=== PATIENT | male | born 1940 | race Caucasian/White ===

== ENCOUNTER 2016-09-18 03:29 | Inpatient (IN) | payer OTHER ==
[~2016-09-18] VITALS: Ht 172.7 cm; Wt 119.5 kg
[~2016-09-18 03:29] MED LIST: ALLOPURINOL100 MG PO; ASPIRIN325 MG PO; BENICAR40 MG PO; CRESTOR5 MG PO; Feosol PO; GLUCOSAMINE CH1 EACH PO; HYDRODIURIL,ORE25 MG PO; IRON45 MG PO; Januvia PO; LOPID600 MG PO; LOPRESSOR25 MG PO; Motrin PO; OXYCODONE HCL10 MG PO; Percocet 5/325,Endoc PO; STOOL SOFTENER50 MG PO; TYLENOL ARTHRI650 M2 PO; TYLENOL325 M1 PO; VASOTEC20 MG PO; ZETIA10 MG PO; [UNRECOGNIZED DRUG - CODE] PO
[2016-09-18 04:14] LABS: EOSINOPHIL (%) 0.7 % (0-5); EOSINOPHIL COUNT 0.1 K/uL (0-0.3); HEMATOCRIT 43.5 % (38.0-50.0); IMMATURE GRANULOCYTE (%) 0.4 % (0.0-0.7); IMMATURE GRANULOCYTE COUNT 0.4 K/uL; LYMPHOCYTE COUNT 0.4 K/uL (1.0-2.8); MCH 30.1 PG (29.0-34.0); MCHC 32.4 G/DL (30.0-36.0); MCV 92.9 FL (86-99); MEAN PLAT.VOLUME 11.4 uM^3 (9.0-12.4); MONOCYTE (%) 3.1 % (3-12); MONOCYTE COUNT 0.3 K/uL (0-0.8); NEUTROPHIL COUNT 8.8 K/uL (1.8-6.4); PLATELET COUNT 151 K/uL (156-360); RBC DIS.WIDTH-CV 14.2 % (11.8-14.6); RBC DIS.WIDTH-SD 46.5 % (39-53); RED BLOOD COUNT 4.68 M/uL (4.00-5.50); WHITE BLOOD COUNT 9.6 K/uL (4.1-10.2)
[2016-09-18 04:23] LABS: CHLORIDE 105 mEq/L (99-109); POTASSIUM 3.9 mEq/L (3.7-5.4); SODIUM 145 mEq/L (136-147)
[2016-09-18 04:25] LABS: GLUCOSE 144 mg/dL (70-99)
[2016-09-18 04:26] LABS: ANION GAP 13 MEQ/L (2-14)
[2016-09-18 04:28] LABS: GFR ESTIMATE (CALCULATED) 37 mL/min/
[2016-09-18 04:29] LABS: UREA NITROGEN (BUN) 27 mg/dL (9-23)
[2016-09-18 04:35] LABS: TROP-I INTERPRETATION NEGATIVE; TROPONIN-I 0.04 ng/mL (0.0-0.30)
[2016-09-18 04:51] LABS: INFLUENZA A VIRAL ANTIGEN NEGATIVE; INFLUENZA B VIRAL ANTIGEN NEGATIVE
[2016-09-18] MEDS ORDERED: GLIPIZIDE ER2.5 MG PO (05:42)
[2016-09-18] MEDS ORDERED: FUROSEMIDE80 MG PO (05:43)
[2016-09-18] MEDS ORDERED: PARICALCITOL1 MCG PO (05:49)
[2016-09-18] MEDS ORDERED: GABAPENTIN100 MG PO (05:50)
[2016-09-18] MEDS ORDERED: IRBESARTAN75 MG PO (05:52)
[2016-09-18] MEDS ORDERED: CLONIDINE HCL0.1 MG PO (05:52)
[2016-09-18] MEDS ORDERED: ATORVASTATIN CA40 MG PO (05:53)
[2016-09-18] MEDS ORDERED: ESCITALOPRAM OX10 MG PO (05:53)
[2016-09-18] MEDS ORDERED: LO-DOSE ASPIRIN81 M2 PO (05:54)
[2016-09-18] MEDS ORDERED: AMLODIPINE BESY10 MG PO (05:54)
[2016-09-18] MEDS ORDERED: MAG-TAB SR84 MG PO (05:55)
[2016-09-18 06:37] VITALS: BP 159/61
[2016-09-18 08:20] VITALS: BP 131/62
[2016-09-18] MEDS ORDERED: STOOL SOFTENER100 M1 PO (10:32)
[2016-09-18] MEDS ORDERED: ALLOPURINOL100 MG PO (10:33)
[2016-09-18] MEDS ORDERED: MUCINEX1200 MG PO (10:34)
[2016-09-18] MEDS ORDERED: ADVAIR HFA120 INHALA IH (10:35)
[2016-09-18] MEDS ORDERED: PROAIR HFA8.5 GM IH (10:35)
[2016-09-18 10:53] LABS: TROP-I INTERPRETATION NEGATIVE; TROPONIN-I 0.07 ng/mL (0.0-0.30)
[2016-09-18 12:09] LABS: D-DIMER ELISA > 4.00 mg/L FEU (< 0.57)
[2016-09-18 12:19] VITALS: BP 126/57
[2016-09-18 15:55] VITALS: BP 133/62
[2016-09-18] MEDS ORDERED: SYMBICORT60 INHALAT IH ×2 (16:16→16:17)
[2016-09-18 16:50] LABS: POINT-OF-CARE METER ID UU14162508
[2016-09-18 17:25] LABS: TROP-I INTERPRETATION NEGATIVE; TROPONIN-I 0.06 ng/mL (0.0-0.30)
[2016-09-18 19:05] VITALS: BP 161/69
[2016-09-18 21:31] LABS: POINT-OF-CARE METER ID UU14162508
[2016-09-19 00:32] VITALS: BP 148/67
[2016-09-19 03:10] VITALS: BP 133/63
[2016-09-19 07:05] LABS: POINT-OF-CARE METER ID UU14162508
[2016-09-19 08:43] VITALS: BP 147/67
[2016-09-19 09:18] LABS: ALKALINE PHOSPHATASE 88 IU/L (3-129); ANION GAP 9 MEQ/L (2-14); CHLORIDE 102 MEQ/L (99-109); EOSINOPHIL (%) 0.6 % (0-5); EOSINOPHIL COUNT 0.1 K/uL (0-0.3); GFR ESTIMATE (CALCULATED) 42 mL/min/; GLUCOSE 119 mg/dL (70-99); HEMATOCRIT 39.9 % (38.0-50.0); IMMATURE GRANULOCYTE (%) 0.3 % (0.0-0.7); IMMATURE GRANULOCYTE COUNT 0.1 K/uL; LYMPHOCYTE COUNT 0.8 K/uL (1.0-2.8); MCHC 30.8 G/DL (30.0-36.0); MCV 94.1 FL (86-99); MEAN PLAT.VOLUME 11.9 uM^3 (9.0-12.4); MONOCYTE (%) 5.8 % (3-12); MONOCYTE COUNT 0.8 K/uL (0-0.8); NEUTROPHIL (%) 87.4 % (45-76); NEUTROPHIL COUNT 12.7 K/uL (1.8-6.4); PLATELET COUNT 137 K/uL (156-360); POTASSIUM 4.2 MEQ/L (3.7-5.4); RBC DIS.WIDTH-CV 14.8 % (11.8-14.6); RBC DIS.WIDTH-SD 50.6 % (39-53); RED BLOOD COUNT 4.24 M/uL (4.00-5.50); SAMPLE HEMOLYSIS CHECK 0; SAMPLE ICTERIC CHECK 0; SAMPLE LIPEMIA CHECK 0; SODIUM 141 MEQ/L (136-147); TOTAL BILIRUBIN 0.9 MG/DL (0.0-1.0); UREA NITROGEN (BUN) 29 mg/dL (9-23)
[2016-09-19 09:26] LABS: WHITE BLOOD COUNT 14.5 K/uL (4.1-10.2)
[2016-09-19 09:51] LABS: Estimated Average Glucose 180 mg/dL (70-123); HEMOGLOBIN A1c (GLYCOHEMOGLOB) 7.9 % HGB (Below 5.7)
[2016-09-19 16:00] VITALS: BP 143/65
[2016-09-19 19:00] VITALS: BP 160/71
[2016-09-19 21:41] LABS: POINT-OF-CARE METER ID UU14162508
[2016-09-19 23:13] VITALS: BP 148/80
[2016-09-20 03:00] VITALS: BP 137/69
[2016-09-20 04:40] LABS: ADD MIUA? YES; BILIRUBIN NEGATIVE; BLOOD SMALL; COLOR YELLOW ((YELLOW)); GLUCOSE (STRIP) NEGATIVE; KETONES NEGATIVE; LEUKOCYTES NEGATIVE; NITRITE NEGATIVE; PROTEIN (STRIP) 100; SPECIFIC GRAVITY 1.011 (1.000-1.030); UROBILINOGEN 0.2 MG/DL (0.2-1.0)
[2016-09-20 04:47] LABS: BACTERIA NONE SEEN /HPF; EPITHELIAL CELLS NONE SEEN /HPF; MUCUS NONE SEEN /LPF; RED BLOOD CELLS 0-5 /HPF (0-5); UCUL ADDED? NO; WHITE BLOOD CELLS 0-5 /HPF (0-5)
[2016-09-20 06:36] LABS: POINT-OF-CARE METER ID UU14162508
[2016-09-20 06:39] LABS: EOSINOPHIL COUNT 0.1 K/uL (0-0.3); HEMATOCRIT 35.9 % (38.0-50.0); IMMATURE GRANULOCYTE (%) 0.3 % (0.0-0.7); LYMPHOCYTE COUNT 0.7 K/uL (1.0-2.8); MCH 29.7 PG (29.0-34.0); MCHC 31.5 G/DL (30.0-36.0); MCV 94.5 FL (86-99); MEAN PLAT.VOLUME 12.1 uM^3 (9.0-12.4); MONOCYTE (%) 6.5 % (3-12); MONOCYTE COUNT 0.7 K/uL (0-0.8); NEUTROPHIL (%) 85.8 % (45-76); NEUTROPHIL COUNT 9.8 K/uL (1.8-6.4); PLATELET COUNT 123 K/uL (156-360); RBC DIS.WIDTH-CV 14.7 % (11.8-14.6); RBC DIS.WIDTH-SD 50.4 % (39-53); WHITE BLOOD COUNT 11.4 K/uL (4.1-10.2)
[2016-09-20 07:00] VITALS: BP 182/77
[2016-09-20 07:11] LABS: ALKALINE PHOSPHATASE 87 IU/L (3-129); ANION GAP 10 MEQ/L (2-14); CHLORIDE 102 MEQ/L (99-109); GFR ESTIMATE (CALCULATED) 45 mL/min/; GLUCOSE 148 mg/dL (70-99); POTASSIUM 4.1 MEQ/L (3.7-5.4); SAMPLE HEMOLYSIS CHECK 0; SAMPLE ICTERIC CHECK 0; SAMPLE LIPEMIA CHECK 0; SODIUM 138 MEQ/L (136-147); UREA NITROGEN (BUN) 28 mg/dL (9-23)
[2016-09-20 07:13] LABS: TOTAL BILIRUBIN 0.7 MG/DL (0.0-1.0)
[2016-09-20 07:54] LABS: INTERNAL CONTROL VALID? YES
[2016-09-20 11:15] VITALS: BP 162/70
[2016-09-20] MEDS ORDERED: CEFTIN500 MG PO (12:21)
== END 2016-09-20 13:10 | disposition home or self-care (01) | DRG 193 ==
LOC: EME 03:29 → 2EAST 05:23 → EDOF 05:23 → 2EAST 06:17
PROVIDERS: Hospitalist; Personal Emergency Response Attendant; Physician Assistant
DX: J18.9 Pneumonia, unspecified organism (principal); J96.01 Acute respiratory failure with hypoxia; N18.3 Chronic kidney disease, stage 3 (moderate); E11.22 Type 2 diabetes mellitus with diabetic chronic kidney disease; I12.9 Hypertensive chronic kidney disease with stage 1 through stage 4 chronic kidney disease, or unspecified chronic kidney disease; I25.10 Atherosclerotic heart disease of native coronary artery without angina pectoris; E78.5 Hyperlipidemia, unspecified; Z87.891 Personal history of nicotine dependence; G47.33 Obstructive sleep apnea (adult) (pediatric); E66.9 Obesity, unspecified; Z85.048 Personal history of other malignant neoplasm of rectum, rectosigmoid junction, and anus; Z88.2 Allergy status to sulfonamides; Z88.8 Allergy status to other drugs, medicaments and biological substances; I25.2 Old myocardial infarction; Z90.49 Acquired absence of other specified parts of digestive tract
CPT/HCPCS: 71010; 78582; 80048; 80053; 81003; 82948; 83036; 84484; 85025; 85027; 85379; 87040; 87070; 87205; 87449; 87502; 93005; 93970; 94640; 94640 76; 94660; 94799; 99202; 99281; 99285; A9540; A9567; J0456; J0696; J1644; J1815; J2270; J7030; J7050

== ENCOUNTER 2017-04-26 09:35 | Inpatient (IN) | payer OTHER ==
[~2017-04-26] VITALS: Ht 170.2 cm; Wt 123.3 kg
[~2017-04-26 09:35] MED LIST changes: +ADVAIR HFA120 INHALA IH; +AMLODIPINE BESY10 MG PO; +ATORVASTATIN CA40 MG PO; +CEFTIN500 MG PO; +CLONIDINE HCL0.1 MG PO; +ESCITALOPRAM OX10 MG PO; +FUROSEMIDE80 MG PO; +GABAPENTIN100 MG PO; +GLIPIZIDE ER2.5 MG PO; +IRBESARTAN75 MG PO; +LO-DOSE ASPIRIN81 M2 PO; +MAG-TAB SR84 MG PO; +MUCINEX1200 MG PO; +PARICALCITOL1 MCG PO; +PROAIR HFA8.5 GM IH; +STOOL SOFTENER100 M1 PO; +SYMBICORT60 INHALAT IH
[2017-04-26 10:47] LABS: EOSINOPHIL (%) 0.6 % (0-5); EOSINOPHIL COUNT 0.1 K/uL (0-0.3); HEMATOCRIT 38.6 % (38.0-50.0); IMMATURE GRANULOCYTE (%) 0.5 % (0.0-0.7); IMMATURE GRANULOCYTE COUNT 0.1 K/uL; INSTRUMENT ABS NEUTROPHIL CT 12.5 K/uL; LYMPHOCYTE COUNT 0.6 K/uL (1.0-2.8); MCH 29.5 PG (29.0-34.0); MCHC 32.1 G/DL (30.0-36.0); MCV 91.7 FL (86-99); MONOCYTE (%) 5.4 % (3-12); MONOCYTE COUNT 0.8 K/uL (0-0.8); NEUTROPHIL COUNT 12.5 K/uL (1.8-6.4); PLATELET COUNT 175 K/uL (156-360); RBC DIS.WIDTH-SD 46.7 % (39-53); RED BLOOD COUNT 4.21 M/uL (4.00-5.50)
[2017-04-26 10:57] LABS: CHLORIDE 101 mEq/L (99-109); POTASSIUM 4.2 mEq/L (3.7-5.4); SODIUM 140 mEq/L (136-147)
[2017-04-26 10:59] LABS: GLUCOSE 168 mg/dL (70-99)
[2017-04-26 11:01] LABS: ANION GAP 12 MEQ/L (2-14); TOTAL BILIRUBIN 0.8 mg/dL (0.0-1.0)
[2017-04-26 11:03] LABS: ALKALINE PHOSPHATASE 121 IU/L (3-129); GFR ESTIMATE (CALCULATED) 28 mL/min/
[2017-04-26 11:04] LABS: UREA NITROGEN (BUN) 29 mg/dL (9-23)
[2017-04-26 13:07] LABS: ADD MIUA? YES; BILIRUBIN NEGATIVE; BLOOD SMALL; COLOR YELLOW ((YELLOW)); GLUCOSE (STRIP) 50; KETONES NEGATIVE; LEUKOCYTES NEGATIVE; NITRITE NEGATIVE; PROTEIN (STRIP) 100; SPECIFIC GRAVITY 1.016 (1.000-1.030); UROBILINOGEN 0.2 MG/DL (0.2-1.0)
[2017-04-26 13:11] LABS: BACTERIA NONE SEEN /HPF; EPITHELIAL CELLS RARE /HPF; MUCUS TRACE /LPF; RED BLOOD CELLS 0-5 /HPF (0-5); UCUL ADDED? NO; WHITE BLOOD CELLS 0-5 /HPF (0-5)
[2017-04-26] MEDS ORDERED: ADVAIR 250/501 DISK IH (15:29)
[2017-04-26] MEDS ORDERED: MAGNESIUM250 MG PO (15:29)
[2017-04-26] MEDS ORDERED: LASIX80 MG PO (15:31)
[2017-04-26] MEDS ORDERED: FLEXERIL5 MG PO (15:32)
[2017-04-26] MEDS ORDERED: OMEGA-3 KRILL1 EAC2 PO (15:33)
[2017-04-26 18:03] VITALS: BP 193/77
[2017-04-26 19:39] VITALS: BP 163/75
[2017-04-27 03:52] VITALS: BP 128/62
[2017-04-27 06:55] LABS: ANION GAP 9 MEQ/L (2-14); CHLORIDE 104 MEQ/L (99-109); GLUCOSE 126 mg/dL (70-99); POTASSIUM 4.3 MEQ/L (3.7-5.4); SAMPLE HEMOLYSIS CHECK 0; SAMPLE ICTERIC CHECK 0; SAMPLE LIPEMIA CHECK 0; SODIUM 140 MEQ/L (136-147); UREA NITROGEN (BUN) 24 mg/dL (9-23)
[2017-04-27 07:01] LABS: POINT-OF-CARE METER ID UU13113717
[2017-04-27 07:07] LABS: GFR ESTIMATE (CALCULATED) 37 mL/min/
[2017-04-27 07:17] VITALS: BP 156/66
[2017-04-27 09:20] LABS: INTERNAL CONTROL VALID? YES
[2017-04-27 11:16] VITALS: BP 157/68
[2017-04-27 15:15] VITALS: BP 142/62
[2017-04-27 17:33] LABS: POINT-OF-CARE METER ID UU14188625
[2017-04-27 19:25] VITALS: BP 181/81
[2017-04-27 23:02] LABS: POINT-OF-CARE METER ID UU14188625
[2017-04-27 23:57] VITALS: BP 169/74
[2017-04-28] VITALS (7 sets, daily range): BP systolic 139–213; BP diastolic 65–93
[2017-04-28 06:29] LABS: ANION GAP 9 MEQ/L (2-14); CHLORIDE 105 MEQ/L (99-109); GFR ESTIMATE (CALCULATED) 45 mL/min/; GLUCOSE 127 mg/dL (70-99); POTASSIUM 4.6 MEQ/L (3.7-5.4); SAMPLE HEMOLYSIS CHECK 0; SAMPLE ICTERIC CHECK 0; SAMPLE LIPEMIA CHECK 0; SODIUM 139 MEQ/L (136-147); UREA NITROGEN (BUN) 22 mg/dL (9-23)
[2017-04-28 06:33] LABS: HEMATOCRIT 33.2 % (38.0-50.0); MCH 28.8 PG (29.0-34.0); MCV 92.7 FL (86-99); MEAN PLAT.VOLUME 11.6 uM^3 (9.0-12.4); PLATELET COUNT 152 K/uL (156-360); RBC DIS.WIDTH-CV 13.9 % (11.8-14.6); RBC DIS.WIDTH-SD 47.5 % (39-53); RED BLOOD COUNT 3.58 M/uL (4.00-5.50); WHITE BLOOD COUNT 9.6 K/uL (4.1-10.2)
[2017-04-28 06:54] LABS: POINT-OF-CARE METER ID UU14188625
[2017-04-28 11:15] LABS: POINT-OF-CARE METER ID UU14188625
[2017-04-28 16:35] LABS: POINT-OF-CARE METER ID UU14188625
[2017-04-29] VITALS (8 sets, daily range): BP systolic 110–178; BP diastolic 57–87
[2017-04-29 06:56] LABS: HEMATOCRIT 36.4 % (38.0-50.0); MCH 28.9 PG (29.0-34.0); MCHC 31.3 G/DL (30.0-36.0); MCV 92.2 FL (86-99); MEAN PLAT.VOLUME 11.3 uM^3 (9.0-12.4); RBC DIS.WIDTH-CV 13.8 % (11.8-14.6); RBC DIS.WIDTH-SD 47.3 % (39-53); RED BLOOD COUNT 3.95 M/uL (4.00-5.50); WHITE BLOOD COUNT 9.8 K/uL (4.1-10.2)
[2017-04-29 07:01] LABS: PLATELET COUNT 202 K/uL (156-360)
[2017-04-29 07:11] LABS: ANION GAP 12 MEQ/L (2-14); CHLORIDE 102 MEQ/L (99-109); GFR ESTIMATE (CALCULATED) 45 mL/min/; GLUCOSE 140 mg/dL (70-99); POTASSIUM 4.3 MEQ/L (3.7-5.4); SAMPLE HEMOLYSIS CHECK 0; SAMPLE ICTERIC CHECK 0; SAMPLE LIPEMIA CHECK 0; SODIUM 136 MEQ/L (136-147); UREA NITROGEN (BUN) 23 mg/dL (9-23)
[2017-04-29 11:10] LABS: POINT-OF-CARE METER ID UU13113717
[2017-04-29 15:13] LABS: BASE EXCESS -2.5 mEq/L (-3 to +3); BICARBONATE 22.5 mEq/L (22-26); CARBOXY HGB 1.6 % (0-5); METHEMOGLOBIN 1.2 % (0-1.5); PCO2 39 mm Hg (35-45); PO2 104 mm Hg (80-100); pH 7.37 (7.35-7.45)
[2017-04-29 15:14] LABS: COMMENTS - BLOOD GASES C+; DEVICE NRB; O2 FLOW 15 L/MIN; SITE RR; TOTAL RESP RATE 28 resp/min
[2017-04-29 16:27] LABS: POINT-OF-CARE METER ID UU14188625
[2017-04-29 21:11] LABS: POINT-OF-CARE METER ID UU14188625
[2017-04-30 03:40] VITALS: BP 132/72
[2017-04-30 06:56] LABS: EOSINOPHIL (%) 0.1 % (0-5); HEMATOCRIT 34.6 % (38.0-50.0); IMMATURE GRANULOCYTE (%) 0.7 % (0.0-0.7); IMMATURE GRANULOCYTE COUNT 0.1 K/uL; INSTRUMENT ABS NEUTROPHIL CT 12.6 K/uL; LYMPHOCYTE COUNT 0.2 K/uL (1.0-2.8); MCH 28.8 PG (29.0-34.0); MCHC 31.5 G/DL (30.0-36.0); MCV 91.5 FL (86-99); MEAN PLAT.VOLUME 11.8 uM^3 (9.0-12.4); MONOCYTE (%) 2.3 % (3-12); MONOCYTE COUNT 0.3 K/uL (0-0.8); NEUTROPHIL COUNT 12.6 K/uL (1.8-6.4); PLATELET COUNT 168 K/uL (156-360); RBC DIS.WIDTH-CV 14.3 % (11.8-14.6); RBC DIS.WIDTH-SD 47.8 % (39-53); RED BLOOD COUNT 3.78 M/uL (4.00-5.50); WHITE BLOOD COUNT 13.2 K/uL (4.1-10.2)
[2017-04-30 07:05] LABS: ANION GAP 11 MEQ/L (2-14); CHLORIDE 103 MEQ/L (99-109); GFR ESTIMATE (CALCULATED) 35 mL/min/; SAMPLE HEMOLYSIS CHECK 0; SAMPLE ICTERIC CHECK 0; SAMPLE LIPEMIA CHECK 0; SODIUM 135 MEQ/L (136-147); UREA NITROGEN (BUN) 30 mg/dL (9-23)
[2017-04-30 07:08] LABS: GLUCOSE 215 mg/dL (70-99); POTASSIUM 5.5 MEQ/L (3.7-5.4)
[2017-04-30 08:03] VITALS: BP 140/72
[2017-04-30 10:24] LABS: ANION GAP 12 MEQ/L (2-14); CHLORIDE 102 MEQ/L (99-109); GFR ESTIMATE (CALCULATED) 35 mL/min/; GLUCOSE 233 mg/dL (70-99); POTASSIUM 4.9 MEQ/L (3.7-5.4); SAMPLE HEMOLYSIS CHECK 0; SAMPLE ICTERIC CHECK 0; SAMPLE LIPEMIA CHECK 0; SODIUM 136 MEQ/L (136-147); UREA NITROGEN (BUN) 33 mg/dL (9-23)
[2017-04-30 11:26] LABS: POINT-OF-CARE METER ID UU14188625
[2017-04-30 12:19] VITALS: BP 126/64
[2017-04-30 17:30] LABS: POINT-OF-CARE METER ID UU14188625
[2017-04-30 17:34] VITALS: BP 159/74
[2017-04-30 19:30] VITALS: BP 131/68
[2017-05-01 00:47] VITALS: BP 127/60
[2017-05-01 04:34] VITALS: BP 176/77
[2017-05-01 05:00] VITALS: BP 145/84
[2017-05-01 07:50] VITALS: BP 156/91
[2017-05-01 08:36] LABS: POINT-OF-CARE METER ID UU14188625
[2017-05-01 08:54] LABS: HEMATOCRIT 35.5 % (38.0-50.0); MCH 28.7 PG (29.0-34.0); MCHC 31.8 G/DL (30.0-36.0); MCV 90.1 FL (86-99); MEAN PLAT.VOLUME 11.6 uM^3 (9.0-12.4); RBC DIS.WIDTH-SD 46.6 % (39-53); RED BLOOD COUNT 3.94 M/uL (4.00-5.50); WHITE BLOOD COUNT 17.4 K/uL (4.1-10.2)
[2017-05-01 08:59] LABS: PLATELET COUNT 221 K/uL (156-360)
[2017-05-01 09:47] LABS: ANION GAP 12 MEQ/L (2-14); CHLORIDE 99 MEQ/L (99-109); GFR ESTIMATE (CALCULATED) 25 mL/min/; GLUCOSE 286 mg/dL (70-99); POTASSIUM 5.1 MEQ/L (3.7-5.4); SAMPLE HEMOLYSIS CHECK 0; SAMPLE ICTERIC CHECK 0; SAMPLE LIPEMIA CHECK 0; SODIUM 133 MEQ/L (136-147)
[2017-05-01 09:49] LABS: UREA NITROGEN (BUN) 62 mg/dL (9-23)
[2017-05-01 12:44] LABS: POINT-OF-CARE METER ID UU14188625
[2017-05-01 12:54] VITALS: BP 149/88
[2017-05-01 17:53] LABS: POINT-OF-CARE METER ID UU13113717
[2017-05-01 19:29] VITALS: BP 187/93
[2017-05-01 20:49] LABS: UR CREATININE CONCENTRATION 101.9 MG/DL
[2017-05-02] VITALS (7 sets, daily range): BP systolic 126–181; BP diastolic 60–89
[2017-05-02 09:30] LABS: EOSINOPHIL (%) 0 % (0-5); HEMATOCRIT 33.9 % (38.0-50.0); IMMATURE GRANULOCYTE COUNT 0.3 K/uL; INSTRUMENT ABS NEUTROPHIL CT 13.7 K/uL; LYMPHOCYTE COUNT 0.5 K/uL (1.0-2.8); MCH 28.7 PG (29.0-34.0); MCHC 31.9 G/DL (30.0-36.0); MCV 90.2 FL (86-99); MEAN PLAT.VOLUME 11.5 uM^3 (9.0-12.4); MONOCYTE (%) 5.1 % (3-12); MONOCYTE COUNT 0.8 K/uL (0-0.8); NEUTROPHIL (%) 89.6 % (45-76); NEUTROPHIL COUNT 13.7 K/uL (1.8-6.4); PLATELET COUNT 238 K/uL (156-360); RBC DIS.WIDTH-CV 14.1 % (11.8-14.6); RBC DIS.WIDTH-SD 46.5 % (39-53); RED BLOOD COUNT 3.76 M/uL (4.00-5.50); WHITE BLOOD COUNT 15.3 K/uL (4.1-10.2)
[2017-05-02 09:56] LABS: ANION GAP 13 MEQ/L (2-14); CHLORIDE 99 MEQ/L (99-109); GFR ESTIMATE (CALCULATED) 19 mL/min/; GLUCOSE 292 mg/dL (70-99); SAMPLE HEMOLYSIS CHECK 0; SAMPLE ICTERIC CHECK 0; SAMPLE LIPEMIA CHECK 0; SODIUM 132 MEQ/L (136-147); UREA NITROGEN (BUN) 83 mg/dL (9-23)
[2017-05-02 11:57] LABS: POINT-OF-CARE METER ID UU14188625
[2017-05-02 16:33] LABS: POINT-OF-CARE METER ID UU14188625
[2017-05-02 21:06] LABS: POINT-OF-CARE METER ID UU14188625
[2017-05-03 03:27] VITALS: BP 137/65
[2017-05-03 06:57] LABS: ANION GAP 9 MEQ/L (2-14); CHLORIDE 103 MEQ/L (99-109); GFR ESTIMATE (CALCULATED) 24 mL/min/; GLUCOSE 230 mg/dL (70-99); POTASSIUM 5.3 MEQ/L (3.7-5.4); SAMPLE HEMOLYSIS CHECK 0; SAMPLE ICTERIC CHECK 0; SAMPLE LIPEMIA CHECK 0; SODIUM 137 MEQ/L (136-147); UREA NITROGEN (BUN) 86 mg/dL (9-23)
[2017-05-03 07:06] VITALS: BP 170/74
[2017-05-03 07:56] LABS: INTACT PARATHYROID HORMONE 87 pg/mL (10-69)
[2017-05-03 08:21] LABS: HEMATOCRIT 32.3 % (38.0-50.0); MCH 28.7 PG (29.0-34.0); MCHC 31.6 G/DL (30.0-36.0); MCV 90.7 FL (86-99); MEAN PLAT.VOLUME 11.8 uM^3 (9.0-12.4); PLATELET COUNT 237 K/uL (156-360); RBC DIS.WIDTH-CV 14.2 % (11.8-14.6); RBC DIS.WIDTH-SD 47.5 % (39-53); RED BLOOD COUNT 3.56 M/uL (4.00-5.50); WHITE BLOOD COUNT 12.2 K/uL (4.1-10.2)
[2017-05-03 11:03] VITALS: BP 152/70
[2017-05-03 12:02] LABS: POINT-OF-CARE METER ID UU14188625
[2017-05-03 15:03] VITALS: BP 141/63
[2017-05-03 16:25] LABS: POINT-OF-CARE METER ID UU13113717
[2017-05-03 19:38] VITALS: BP 153/72
[2017-05-03 21:37] LABS: POINT-OF-CARE METER ID UU13113717
[2017-05-04 00:50] VITALS: BP 176/79
[2017-05-04 04:31] VITALS: BP 197/90
[2017-05-04 07:04] LABS: ANION GAP 9 MEQ/L (2-14); CHLORIDE 104 MEQ/L (99-109); GFR ESTIMATE (CALCULATED) 27 mL/min/; GLUCOSE 151 mg/dL (70-99); POTASSIUM 5.2 MEQ/L (3.7-5.4); SAMPLE HEMOLYSIS CHECK 0; SAMPLE ICTERIC CHECK 0; SAMPLE LIPEMIA CHECK 0; SODIUM 136 MEQ/L (136-147); UREA NITROGEN (BUN) 81 mg/dL (9-23)
[2017-05-04 08:07] VITALS: BP 190/82
[2017-05-04] MEDS ORDERED: CLONIDINE HCL0.2 MG PO (09:59)
[2017-05-04] MEDS ORDERED: AUGMENTIN500 MG PO (09:59)
[2017-05-04] MEDS ORDERED: PREDNISONE20 MG PO (09:59)
[2017-05-04] MEDS ORDERED: APRESOLINE50 MG PO (09:59)
[2017-05-04] MEDS ORDERED: AMLODIPINE BESY10 MG PO (09:59)
[2017-05-04 11:33] VITALS: BP 189/79
[2017-05-04 12:08] LABS: POINT-OF-CARE METER ID UU14188625
== END 2017-05-04 14:08 | disposition home health service (06) | DRG 871 ==
LOC: EME 09:35 → EDOF 14:04 → ENRESERV 14:05 → EDOF 14:17 → ENRESERV 14:50 → 5SOUTH 17:15
PROVIDERS: Emergency Medicine; Hospitalist; Internal Medicine; Physician Assistant
PROC: 5A09357 Assistance with Respiratory Ventilation, Less than 24 Consecutive Hours, Continuous Positive Airway Pressure (ICD-10-PCS; principal; 2017-04-29)
DX: A41.9 Sepsis, unspecified organism (principal); R65.20 Severe sepsis without septic shock; J44.0 Chronic obstructive pulmonary disease with (acute) lower respiratory infection; J15.9 Unspecified bacterial pneumonia; J44.1 Chronic obstructive pulmonary disease with (acute) exacerbation; N17.9 Acute kidney failure, unspecified; I13.0 Hypertensive heart and chronic kidney disease with heart failure and stage 1 through stage 4 chronic kidney disease, or unspecified chronic kidney disease; E11.22 Type 2 diabetes mellitus with diabetic chronic kidney disease; N18.4 Chronic kidney disease, stage 4 (severe); I50.9 Heart failure, unspecified; R09.02 Hypoxemia; E11.65 Type 2 diabetes mellitus with hyperglycemia; E87.5 Hyperkalemia; G47.33 Obstructive sleep apnea (adult) (pediatric); I27.20 Pulmonary hypertension, unspecified; N40.1 Benign prostatic hyperplasia with lower urinary tract symptoms; R31.0 Gross hematuria; N32.0 Bladder-neck obstruction; R39.11 Hesitancy of micturition; R33.9 Retention of urine, unspecified; J98.11 Atelectasis; K59.00 Constipation, unspecified; N13.30 Unspecified hydronephrosis; N25.81 Secondary hyperparathyroidism of renal origin; D64.9 Anemia, unspecified; R60.0 Localized edema; E78.5 Hyperlipidemia, unspecified; I25.10 Atherosclerotic heart disease of native coronary artery without angina pectoris; I25.2 Old myocardial infarction; M10.9 Gout, unspecified; E66.9 Obesity, unspecified; Z68.41 Body mass index [BMI] 40.0-44.9, adult; G89.29 Other chronic pain; M54.9 Dorsalgia, unspecified; Z80.0 Family history of malignant neoplasm of digestive organs; Z82.49 Family history of ischemic heart disease and other diseases of the circulatory system; Z85.048 Personal history of other malignant neoplasm of rectum, rectosigmoid junction, and anus; Z87.891 Personal history of nicotine dependence; Z90.49 Acquired absence of other specified parts of digestive tract; Z90.79 Acquired absence of other genital organ(s); Z93.3 Colostomy status
CPT/HCPCS: 36600; 71010; 71020; 74020; 76770; 78582; 80048; 80048 91; 80053; 80069; 81003; 82436; 82570; 82803; 82948; 83605; 83735; 83970; 84300; 85025; 85027; 85379; 87040; 87070; 87205; 87449; 89190; 93005; 93306; 94010; 94640; 94640 76; 94660; 94667; 94668; 94799; 99202; 99281; 99285; A9540; A9567; J0360; J0456; J0696; J1650; J1815; J2060; J2270; J2930; J3370; J3475; J7030; J7040; J7050; J7512

== ENCOUNTER 2017-05-05 16:21 | Emergency (ER) | payer OTHER ==
[~2017-05-05] VITALS: Ht 170.2 cm; Wt 126.4 kg
[~2017-05-05 16:21] MED LIST changes: +ADVAIR 250/501 DISK IH; +APRESOLINE50 MG PO; +AUGMENTIN500 MG PO; +CLONIDINE HCL0.2 MG PO; +FLEXERIL5 MG PO; +LASIX80 MG PO; +MAGNESIUM250 MG PO; +OMEGA-3 KRILL1 EAC2 PO; +PREDNISONE20 MG PO
[2017-05-05 21:45] VITALS: BP 170/80
== END 2017-05-05 21:50 | disposition home or self-care (01) ==
LOC: EME 16:21
PROC: 0T2BX0Z Change Drainage Device in Bladder, External Approach (ICD-10-PCS; principal; 2017-05-05)
DX: T83.098A Other mechanical complication of other urinary catheter, initial encounter (principal); Y84.6 Urinary catheterization as the cause of abnormal reaction of the patient, or of later complication, without mention of misadventure at the time of the procedure; R33.9 Retention of urine, unspecified; N32.0 Bladder-neck obstruction; I13.0 Hypertensive heart and chronic kidney disease with heart failure and stage 1 through stage 4 chronic kidney disease, or unspecified chronic kidney disease; N18.3 Chronic kidney disease, stage 3 (moderate); E11.22 Type 2 diabetes mellitus with diabetic chronic kidney disease; I50.9 Heart failure, unspecified; E78.5 Hyperlipidemia, unspecified; I25.10 Atherosclerotic heart disease of native coronary artery without angina pectoris; I25.2 Old myocardial infarction; I48.92 Unspecified atrial flutter; M10.9 Gout, unspecified; E21.3 Hyperparathyroidism, unspecified; G47.30 Sleep apnea, unspecified; Z85.038 Personal history of other malignant neoplasm of large intestine; Z93.3 Colostomy status; Z79.84 Long term (current) use of oral hypoglycemic drugs; Z79.82 Long term (current) use of aspirin; Z87.891 Personal history of nicotine dependence; Z90.79 Acquired absence of other genital organ(s); Z87.01 Personal history of pneumonia (recurrent)
CPT/HCPCS: 99281; 99285; J3010

== ENCOUNTER 2017-10-23 17:58 | Inpatient (IN) | payer OTHER ==
[~2017-10-23] VITALS: Ht 172.7 cm; Wt 115.4 kg
[2017-10-23 18:45] LABS: HEMATOCRIT 32.4 % (38.0-50.0); HEMOGLOBIN 9.9 G/DL (12.5-16.6); MCH 25.3 PG (29.0-34.0); MCHC 30.6 G/DL (30.0-36.0); MCV 82.9 FL (86-99); RBC DIS.WIDTH-CV 16.2 % (11.8-14.6); RBC DIS.WIDTH-SD 48.4 % (39-53); RED BLOOD COUNT 3.91 M/uL (4.00-5.50); WHITE BLOOD COUNT 8.4 K/uL (4.1-10.2)
[2017-10-23 18:51] LABS: PLATELET COUNT 302 K/uL (156-360)
[2017-10-23 18:52] LABS: CARBON DIOXIDE (BICARBONATE) 29.2 MEQ/L (20-31)
[2017-10-23 19:02] LABS: CHLORIDE 105 mEq/L (99-109); POTASSIUM 4.1 mEq/L (3.7-5.4); SODIUM 142 mEq/L (136-147)
[2017-10-23 19:04] LABS: GLUCOSE 164 mg/dL (70-99)
[2017-10-23 19:08] LABS: CREATININE 2.3 mg/dL (0.6-1.3); GFR ESTIMATE (CALCULATED) 30 mL/min/ (58.99-99999)
[2017-10-23 19:09] LABS: UREA NITROGEN (BUN) 23 mg/dL (9-23)
[2017-10-23 19:11] LABS: TROP-I INTERPRETATION NEGATIVE; TROPONIN-I 0.11 ng/mL (0.0-0.30)
[2017-10-23] MEDS ORDERED: VENTOLIN HFA18 GM IH (20:22)
[2017-10-23] MEDS ORDERED: TRADJENTA5 MG PO (20:28)
[2017-10-23] MEDS ORDERED: FUROSEMIDE40 MG PO (20:29)
[2017-10-23] MEDS ORDERED: FUROSEMIDE20 MG PO (20:30)
[2017-10-23] MEDS ORDERED: ALBUTEROL2.5 MG/3 M IH (20:31)
[2017-10-23] MEDS ORDERED: CYCLOBENZAPRINE5 MG PO (20:32)
[2017-10-23] MEDS ORDERED: OMEPRAZOLE20 MG PO (20:32)
[2017-10-23] MEDS ORDERED: ELIQUIS5 MG PO (20:33)
[2017-10-23] MEDS ORDERED: BASAGLAR K100 UNIT/1 SC (20:33)
[2017-10-23] MEDS ORDERED: MEGARED OMEGA-1 EAC2 PO (20:35)
[2017-10-23 22:00] VITALS: BP 172/86
[2017-10-24] VITALS (7 sets, daily range): BP systolic 126–170; BP diastolic 61–98
[2017-10-24 07:10] LABS: BASOPHIL (%) 0.5 % (0-1); EOSINOPHIL (%) 0 % (0-5); HEMATOCRIT 34.8 % (38.0-50.0); HEMOGLOBIN 10.5 G/DL (12.5-16.6); IMMATURE GRANULOCYTE (%) 0.7 % (0.0-0.7); LYMPHOCYTE (%) 3.6 % (15-42); LYMPHOCYTE COUNT 0.3 K/uL (1.0-2.8); MCH 25.1 PG (29.0-34.0); MCHC 30.2 G/DL (30.0-36.0); MCV 83.1 FL (86-99); MONOCYTE (%) 1.1 % (3-12); MONOCYTE COUNT 0.1 K/uL (0-0.8); NEUTROPHIL (%) 94.1 % (45-76); NEUTROPHIL COUNT 7.6 K/uL (1.8-6.4); PLATELET COUNT 327 K/uL (156-360); RBC DIS.WIDTH-CV 16.2 % (11.8-14.6); RBC DIS.WIDTH-SD 48.4 % (39-53); RED BLOOD COUNT 4.19 M/uL (4.00-5.50); WHITE BLOOD COUNT 8.1 K/uL (4.1-10.2)
[2017-10-24 07:35] LABS: CHLORIDE 101 MEQ/L (99-109); CREATININE 2.4 MG/DL (0.6-1.3); GFR ESTIMATE (CALCULATED) 28 mL/min/ (58.99-99999); SODIUM 138 MEQ/L (136-147); UREA NITROGEN (BUN) 26 mg/dL (9-23)
[2017-10-24 07:43] LABS: GLUCOSE 262 mg/dL (70-99); POTASSIUM 5.3 MEQ/L (3.7-5.4)
[2017-10-24 15:49] LABS: APPEARANCE SL.HAZY ((CLEAR)); BILIRUBIN NEGATIVE; BLOOD NEGATIVE; COLOR YELLOW ((YELLOW)); GLUCOSE (STRIP) >=500; KETONES NEGATIVE; LEUKOCYTES NEGATIVE; NITRITE NEGATIVE; PROTEIN (STRIP) 100; SPECIFIC GRAVITY 1.016 (1.000-1.030); UROBILINOGEN 0.2 MG/DL (0.2-1.0)
[2017-10-24 15:53] LABS: BACTERIA NONE SEEN /HPF; EPITHELIAL CELLS NONE SEEN /HPF; MUCUS TRACE /LPF; RED BLOOD CELLS 0-5 /HPF (0-5); WHITE BLOOD CELLS 0-5 /HPF (0-5)
[2017-10-25 04:07] VITALS: BP 157/88
[2017-10-25 06:59] VITALS: BP 156/91
[2017-10-25 11:18] VITALS: BP 157/85
[2017-10-25 15:37] VITALS: BP 141/89
[2017-10-25 19:22] VITALS: BP 159/89
[2017-10-26] VITALS (8 sets, daily range): BP systolic 147–186; BP diastolic 84–95
[2017-10-26 07:12] LABS: CHLORIDE 99 MEQ/L (99-109); CREATININE 2.1 MG/DL (0.6-1.3); GFR ESTIMATE (CALCULATED) 33 mL/min/ (58.99-99999); GLUCOSE 299 mg/dL (70-99); POTASSIUM 5.3 MEQ/L (3.7-5.4); SODIUM 135 MEQ/L (136-147)
[2017-10-26 07:20] LABS: UREA NITROGEN (BUN) 45 mg/dL (9-23)
[2017-10-27 04:22] VITALS: BP 160/91
[2017-10-27 06:12] LABS: HEMATOCRIT 34.9 % (38.0-50.0); HEMOGLOBIN 10.5 G/DL (12.5-16.6); MCH 25.1 PG (29.0-34.0); MCHC 30.1 G/DL (30.0-36.0); MCV 83.3 FL (86-99); NRBC (%) 0.2 /100 WBC (0-0); RBC DIS.WIDTH-CV 16.5 % (11.8-14.6); RBC DIS.WIDTH-SD 49.2 % (39-53); RED BLOOD COUNT 4.19 M/uL (4.00-5.50); WHITE BLOOD COUNT 13.2 K/uL (4.1-10.2)
[2017-10-27 06:22] LABS: PLATELET COUNT 460 K/uL (156-360)
[2017-10-27 06:28] LABS: ALBUMIN 3.6 G/DL (3.2-4.8); CHLORIDE 98 MEQ/L (99-109); CREATININE 2.3 MG/DL (0.6-1.3); GFR ESTIMATE (CALCULATED) 30 mL/min/ (58.99-99999); GLUCOSE 260 mg/dL (70-99); PHOSPHORUS 4.1 mg/dL (2.5-4.9); POTASSIUM 5.9 MEQ/L (3.7-5.4); SODIUM 136 MEQ/L (136-147); UREA NITROGEN (BUN) 48 mg/dL (9-23)
[2017-10-27 07:07] VITALS: BP 157/84
[2017-10-27 11:18] VITALS: BP 146/89
[2017-10-27 15:25] VITALS: BP 157/55
[2017-10-27] MEDS ORDERED: CEFTIN500 MG PO (15:32)
[2017-10-27 15:35] LABS: CHLORIDE 99 MEQ/L (99-109); CREATININE 2.2 MG/DL (0.6-1.3); GFR ESTIMATE (CALCULATED) 31 mL/min/ (58.99-99999); GLUCOSE 260 mg/dL (70-99); SODIUM 135 MEQ/L (136-147); UREA NITROGEN (BUN) 46 mg/dL (9-23)
[2017-10-27 15:37] LABS: POTASSIUM 4.3 MEQ/L (3.7-5.4)
[2017-10-27] MEDS ORDERED: FUROSEMIDE40 MG PO (15:37)
[2017-10-27] MEDS ORDERED: BASAGLAR K100 UNIT/1 SC (15:37)
== END 2017-10-27 18:02 | disposition home or self-care (01) | DRG 291 ==
LOC: EME 17:58 → 5EAST 21:26 → EDOF 21:26 → ENRESERV 21:28 → 5EAST 22:01
PROVIDERS: Emergency Medicine; Internal Medicine; Internal Medicine Nephrology
DX: I13.0 Hypertensive heart and chronic kidney disease with heart failure and stage 1 through stage 4 chronic kidney disease, or unspecified chronic kidney disease (principal); J15.9 Unspecified bacterial pneumonia; J44.1 Chronic obstructive pulmonary disease with (acute) exacerbation; I50.9 Heart failure, unspecified; J44.0 Chronic obstructive pulmonary disease with (acute) lower respiratory infection; I27.20 Pulmonary hypertension, unspecified; G47.33 Obstructive sleep apnea (adult) (pediatric); I25.10 Atherosclerotic heart disease of native coronary artery without angina pectoris; I25.2 Old myocardial infarction; E66.9 Obesity, unspecified; D63.1 Anemia in chronic kidney disease; Z93.3 Colostomy status; Z87.891 Personal history of nicotine dependence; N18.3 Chronic kidney disease, stage 3 (moderate); E11.22 Type 2 diabetes mellitus with diabetic chronic kidney disease; E87.2 Acidosis; E78.5 Hyperlipidemia, unspecified; E87.5 Hyperkalemia; D50.9 Iron deficiency anemia, unspecified; Z85.038 Personal history of other malignant neoplasm of large intestine; Z90.49 Acquired absence of other specified parts of digestive tract; I87.2 Venous insufficiency (chronic) (peripheral); Z80.0 Family history of malignant neoplasm of digestive organs
CPT/HCPCS: 36415; 71045; 76770; 80048; 80048 91; 80069; 81003; 82570; 82607 GA; 82728; 82803; 82948; 83540; 83605; 83880; 84156; 84466; 84484; 85025; 85027; 87040; 93005; 94640; 94640 76; 94660; 94799; 99202; 99281; 99285; J0696; J1100; J1756; J1815; J1940; J7050; J7512

== ENCOUNTER 2017-11-13 11:03 | Emergency (ER) | payer OTHER ==
[~2017-11-13] VITALS: Ht 172.7 cm; Wt 111.1 kg
[~2017-11-13 11:03] MED LIST changes: +ALBUTEROL2.5 MG/3 M IH; +BASAGLAR K100 UNIT/1 SC; +CYCLOBENZAPRINE5 MG PO; +ELIQUIS5 MG PO; +FUROSEMIDE20 MG PO; +FUROSEMIDE40 MG PO; +MEGARED OMEGA-1 EAC2 PO; +OMEPRAZOLE20 MG PO; +TRADJENTA5 MG PO; +VENTOLIN HFA18 GM IH
[2017-11-13 13:11] LABS: HEMATOCRIT 30.2 % (38.0-50.0); MCH 25.6 PG (29.0-34.0); MCHC 29.8 G/DL (30.0-36.0); RBC DIS.WIDTH-CV 19.6 % (11.8-14.6); RBC DIS.WIDTH-SD 59.6 % (39-53); RED BLOOD COUNT 3.51 M/uL (4.00-5.50); WHITE BLOOD COUNT 7.2 K/uL (4.1-10.2)
[2017-11-13 13:22] LABS: CHLORIDE 104 mEq/L (99-109); POTASSIUM 3.6 mEq/L (3.7-5.4); SODIUM 142 mEq/L (136-147)
[2017-11-13 13:24] LABS: GLUCOSE 164 mg/dL (70-99)
[2017-11-13 13:28] LABS: CREATININE 1.9 mg/dL (0.6-1.3); GFR ESTIMATE (CALCULATED) 37 mL/min/ (58.99-99999)
[2017-11-13 13:29] LABS: UREA NITROGEN (BUN) 30 mg/dL (9-23)
[2017-11-13 14:07] LABS: PLAT.SUFFICIENCY ADEQUATE; PLATELET COUNT 177 K/uL (156-360)
[2017-11-13 16:19] LABS: HEMATOCRIT 30.9 % (38.0-50.0); HEMOGLOBIN 9.4 G/DL (12.5-16.6); MCV 85.8 FL (86-99)
[2017-11-13] MEDS ORDERED: PROTONIX40 MG PO (16:22)
[2017-11-13 16:55] VITALS: BP 138/82
== END 2017-11-13 16:55 | disposition home or self-care (01) ==
LOC: EME 11:03
PROVIDERS: Nurse Practitioner Family
DX: K92.1 Melena (principal); I48.91 Unspecified atrial fibrillation; Z79.01 Long term (current) use of anticoagulants; Z79.82 Long term (current) use of aspirin; J44.9 Chronic obstructive pulmonary disease, unspecified; E11.9 Type 2 diabetes mellitus without complications; E78.5 Hyperlipidemia, unspecified; I10 Essential (primary) hypertension; I25.2 Old myocardial infarction; Z85.038 Personal history of other malignant neoplasm of large intestine; Z93.3 Colostomy status; Z88.2 Allergy status to sulfonamides; Z87.891 Personal history of nicotine dependence
CPT/HCPCS: 74176; 80048; 85014; 85018; 85027; 86850; 86900; 86901; 99281; 99285

== ENCOUNTER 2017-12-05 20:50 | Inpatient (IN) | payer OTHER ==
[~2017-12-05] VITALS: Ht 172.7 cm; Wt 108.0 kg
[~2017-12-05 20:50] MED LIST changes: +PROTONIX40 MG PO; -STOOL SOFTENER100 M1 PO; +STOOL SOFTENER250 MG PO
[2017-12-05 21:38] LABS: CHLORIDE 104 mEq/L (99-109); POTASSIUM 3.8 mEq/L (3.7-5.4); SODIUM 142 mEq/L (136-147)
[2017-12-05 21:39] LABS: GLUCOSE 162 mg/dL (70-99)
[2017-12-05 21:43] LABS: CREATININE 2.2 mg/dL (0.6-1.3); GFR ESTIMATE (CALCULATED) 31 mL/min/ (58.99-99999)
[2017-12-05 21:44] LABS: UREA NITROGEN (BUN) 35 mg/dL (9-23)
[2017-12-05 21:48] LABS: TROP-I INTERPRETATION NEGATIVE; TROPONIN-I 0.07 ng/mL (0.0-0.30)
[2017-12-05 22:01] LABS: HEMATOCRIT 28.7 % (38.0-50.0); HEMOGLOBIN 8.5 G/DL (12.5-16.6); MCH 27.3 PG (29.0-34.0); MCHC 29.6 G/DL (30.0-36.0); MCV 92.3 FL (86-99); PLATELET COUNT 219 K/uL (156-360); RBC DIS.WIDTH-CV 19.5 % (11.8-14.6); RBC DIS.WIDTH-SD 65.9 % (39-53); RED BLOOD COUNT 3.11 M/uL (4.00-5.50); WHITE BLOOD COUNT 10.1 K/uL (4.1-10.2)
[2017-12-05] MEDS ORDERED: FEOSOL325 MG PO (22:23)
[2017-12-05] MEDS ORDERED: MEGA RED PO (22:27)
[2017-12-05] MEDS ORDERED: CARDIZEM CD,CA240 MG PO (22:31)
[2017-12-05] MEDS ORDERED: BASAGLAR K100 UNIT/1 SC (22:39)
[2017-12-06 00:58] VITALS: BP 171/83
[2017-12-06 02:14] VITALS: BP 127/27
[2017-12-06 07:03] VITALS: BP 154/74
[2017-12-06 15:22] VITALS: BP 142/69
[2017-12-06 23:58] VITALS: BP 134/63
[2017-12-07] VITALS: BP 134/63
[2017-12-07 07:02] VITALS: BP 145/80
[2017-12-07 15:10] VITALS: BP 124/62
[2017-12-07 23:33] VITALS: BP 152/67
[2017-12-08 07:22] VITALS: BP 131/94
[2017-12-08 16:05] VITALS: BP 135/73
[2017-12-09 01:05] VITALS: BP 145/70
[2017-12-09 07:35] VITALS: BP 140/79
[2017-12-09] MEDS ORDERED: PREDNISONE10 MG PO (08:17)
== END 2017-12-09 10:10 | disposition home or self-care (01) | DRG 189 ==
LOC: EME 20:50 → EDOF 22:53 → 5EAST 22:53 → ENRESERV 22:54 → CANRESERV 22:54 → ENRESERV 23:03 → 5EAST 12-06 00:36 → ENPENDDIS 12-09 → 5EAST 12-09 10:10
PROVIDERS: Internal Medicine
DX: J96.01 Acute respiratory failure with hypoxia (principal); J44.1 Chronic obstructive pulmonary disease with (acute) exacerbation; I48.91 Unspecified atrial fibrillation; I48.92 Unspecified atrial flutter; I13.0 Hypertensive heart and chronic kidney disease with heart failure and stage 1 through stage 4 chronic kidney disease, or unspecified chronic kidney disease; I50.9 Heart failure, unspecified; E11.22 Type 2 diabetes mellitus with diabetic chronic kidney disease; N18.3 Chronic kidney disease, stage 3 (moderate); E11.65 Type 2 diabetes mellitus with hyperglycemia; I25.5 Ischemic cardiomyopathy; D63.1 Anemia in chronic kidney disease; D50.9 Iron deficiency anemia, unspecified; E11.42 Type 2 diabetes mellitus with diabetic polyneuropathy; I27.20 Pulmonary hypertension, unspecified; I25.10 Atherosclerotic heart disease of native coronary artery without angina pectoris; I35.0 Nonrheumatic aortic (valve) stenosis; I25.2 Old myocardial infarction; G47.30 Sleep apnea, unspecified; E78.5 Hyperlipidemia, unspecified; Z79.4 Long term (current) use of insulin; Z79.01 Long term (current) use of anticoagulants; Z79.82 Long term (current) use of aspirin; Z87.891 Personal history of nicotine dependence; Z85.038 Personal history of other malignant neoplasm of large intestine; Z93.3 Colostomy status; Z90.49 Acquired absence of other specified parts of digestive tract; Z86.79 Personal history of other diseases of the circulatory system; Z82.49 Family history of ischemic heart disease and other diseases of the circulatory system
CPT/HCPCS: 36415; 71046; 80048; 80053; 82948; 83880; 84165; 84166; 84484; 85025; 85027; 93005; 94640; 94640 76; 94760; 94799; 99202; 99281; 99285; J0456; J1815; J2920; J2930; J3475; J7040

== ENCOUNTER → 2018-01-27 | Outpatient (CLI) | payer OTHER ==
[~2018-01-27] VITALS: Ht 172.7 cm; Wt 103.4 kg
[~2018-01-27] MED LIST changes: +CARDIZEM CD,CA240 MG PO; +FEOSOL325 MG PO; +FLOMAX0.4 MG PO; +MAGNESIUM400 M1 PO; +MEGA RED PO; +PREDNISONE10 MG PO
== END | disposition home or self-care (01) ==
LOC: AMB 12:37
PROVIDERS: Internal Medicine Gastroenterology
DX: D64.9 Anemia, unspecified (principal); D12.0 Benign neoplasm of cecum; D12.2 Benign neoplasm of ascending colon; D12.3 Benign neoplasm of transverse colon; Z85.048 Personal history of other malignant neoplasm of rectum, rectosigmoid junction, and anus; Z93.3 Colostomy status; K57.30 Diverticulosis of large intestine without perforation or abscess without bleeding; I47.1 Supraventricular tachycardia; I44.1 Atrioventricular block, second degree; I25.10 Atherosclerotic heart disease of native coronary artery without angina pectoris; I25.2 Old myocardial infarction; I25.5 Ischemic cardiomyopathy; I10 Essential (primary) hypertension; I71.4 Abdominal aortic aneurysm, without rupture; E78.5 Hyperlipidemia, unspecified; E11.9 Type 2 diabetes mellitus without complications; M19.90 Unspecified osteoarthritis, unspecified site; Z82.49 Family history of ischemic heart disease and other diseases of the circulatory system; Z87.891 Personal history of nicotine dependence; G47.30 Sleep apnea, unspecified; Z79.82 Long term (current) use of aspirin; Z79.01 Long term (current) use of anticoagulants
CPT/HCPCS: 82948; 88305; J3010

== ENCOUNTER 2018-03-09 09:56 | Emergency (ER) | payer OTHER ==
[~2018-03-09] VITALS: Ht 172.7 cm; Wt 112.4 kg
[~2018-03-09 09:56] MED LIST changes: +STOOL SOFTENER100 MG PO; -STOOL SOFTENER250 MG PO
[2018-03-09 10:29] LABS: BASOPHIL COUNT 0.1 K/uL (0-0.1); EOSINOPHIL (%) 1.9 % (0-5); EOSINOPHIL COUNT 0.2 K/uL (0-0.3); HEMATOCRIT 31.8 % (38.0-50.0); HEMOGLOBIN 9.5 G/DL (12.5-16.6); IMMATURE GRANULOCYTE (%) 0.4 % (0.0-0.7); LYMPHOCYTE (%) 7.6 % (15-42); LYMPHOCYTE COUNT 0.8 K/uL (1.0-2.8); MCH 26.6 PG (29.0-34.0); MCHC 29.9 G/DL (30.0-36.0); MCV 89.1 FL (86-99); MONOCYTE (%) 7.4 % (3-12); MONOCYTE COUNT 0.7 K/uL (0-0.8); NEUTROPHIL (%) 81.7 % (45-76); NEUTROPHIL COUNT 8.1 K/uL (1.8-6.4); PLATELET COUNT 172 K/uL (156-360); RBC DIS.WIDTH-CV 15.9 % (11.8-14.6); RBC DIS.WIDTH-SD 51.5 % (39-53); RED BLOOD COUNT 3.57 M/uL (4.00-5.50); WHITE BLOOD COUNT 9.9 K/uL (4.1-10.2)
[2018-03-09 10:42] LABS: ALBUMIN 3.6 g/dL (3.2-4.8); CHLORIDE 108 mEq/L (99-109); POTASSIUM 4.1 mEq/L (3.7-5.4); SODIUM 141 mEq/L (136-147)
[2018-03-09 10:44] LABS: GLUCOSE 144 mg/dL (70-99); TOTAL PROTEIN 6.1 g/dL (6.4-8.3)
[2018-03-09 10:46] LABS: TOTAL BILIRUBIN 0.5 mg/dL (0.0-1.0)
[2018-03-09 10:48] LABS: ALKALINE PHOSPHATASE 161 IU/L (3-129); CREATININE 1.7 mg/dL (0.6-1.3); GFR ESTIMATE (CALCULATED) 42 mL/min/ (58.99-99999)
[2018-03-09 10:49] LABS: UREA NITROGEN (BUN) 23 mg/dL (9-23)
[2018-03-09 10:50] LABS: AST (GOT) 24 IU/L (2-34)
[2018-03-09 10:51] LABS: ALT (GPT) 27 IU/L (3-49)
[2018-03-09 10:53] LABS: TROP-I INTERPRETATION NEGATIVE; TROPONIN-I 0.03 ng/mL (0.0-0.30)
[2018-03-09] MEDS ORDERED: FISH OIL 1,0001 EAC4 PO (14:41)
[2018-03-09 15:53] VITALS: BP 167/75
[2018-03-09 19:53] VITALS: BP 156/72
[2018-03-10 00:22] VITALS: BP 167/77
[2018-03-10 04:56] VITALS: BP 140/65
[2018-03-10 07:54] VITALS: BP 168/74
[2018-03-10 12:01] VITALS: BP 162/74
[2018-03-10] MEDS ORDERED: AUGMENTIN875 MG PO (14:41)
== END 2018-03-10 16:04 | disposition home or self-care (01) ==
LOC: EME 09:56 → 4SOUTH 13:47 → EDOF 13:47 → ENRESERV 13:48 → 4SOUTH 15:39
PROVIDERS: Emergency Medicine; Hospitalist
DX: I50.9 Heart failure, unspecified (principal); J44.9 Chronic obstructive pulmonary disease, unspecified; I10 Essential (primary) hypertension; E78.5 Hyperlipidemia, unspecified; I25.2 Old myocardial infarction; Z93.3 Colostomy status; Z79.01 Long term (current) use of anticoagulants; Z79.82 Long term (current) use of aspirin; Z79.51 Long term (current) use of inhaled steroids; Z87.01 Personal history of pneumonia (recurrent); Z85.038 Personal history of other malignant neoplasm of large intestine; Z90.49 Acquired absence of other specified parts of digestive tract; Z88.2 Allergy status to sulfonamides; Z88.8 Allergy status to other drugs, medicaments and biological substances
CPT/HCPCS: 71046; 71250; 80053; 82948; 83880; 84484; 85025; 87040; 93005; 94640; 94799; 99281; 99285; G0378; J0456; J0696; J1650; J1940